=== PATIENT | male | born 1985 | race Two or more races ===

== ENCOUNTER 2022-03-05 12:35 | Inpatient (IN) | payer BC ==
[2022-03-05 14:49] VITALS: BMI 21.7
[2022-03-05] MEDS ORDERED: BISMUTH SUBSALICYLATE 524 MG/30 ML PO PRN (17:53)
[2022-03-05] MEDS ORDERED: MAG HYDROX/AL HYDROX/SIMETH 30 ML UNIT-DOSE CUP PO PRN (17:53)
[2022-03-05] MEDS ORDERED: MAGNESIUM HYDROX 2400MG/30ML ORAL SUSPENSION 30 ML CUP PO PRN (17:53)
[2022-03-05] MEDS ORDERED: LOPERAMIDE HCL 2 MG CAPSULE PO PRN (17:53)
[2022-03-05] MEDS ORDERED: BENZOCAINE/MENTHOL (CHLORASEPTIC ) LOZENGE MM PRN (17:53)
[2022-03-05] MEDS ORDERED: MAGNESIUM CITRATE 300 ML BOTTLE PO PRN (17:53)
[2022-03-05] MEDS ORDERED: ACETAMINOPHEN 325 MG TABLET (FP) PO PRN ×2 (17:53)
[2022-03-05] MEDS ORDERED: NICOTINE POLACRILEX 2 MG GUM BUC PRN (17:53)
[2022-03-05] MEDS ORDERED: IBUPROFEN 600 MG TABLET (FP) PO PRN (17:53)
[2022-03-05] MEDS ORDERED: IBUPROFEN 400 MG TABLET (FP) PO PRN (17:53)
[2022-03-05] MEDS ORDERED: NALOXONE HCL 0.4 MG/ML VIAL IM PRN (17:53)
[2022-03-05] MEDS: METHOCARBAMOL 500 MG TABLET PO PRN (19:21)
[2022-03-05] MEDS ORDERED: methaDONE HCL 10 MG TABLET (FOR DETOX USE ONLY) PO ONE (19:30)
[2022-03-05] MEDS: THIAMINE HCL 100 MG TABLET (FP) PO SCH (22:34)
[2022-03-05] MEDS: MELATONIN 5 MG TABLETS PO SCH (22:35)
[2022-03-06] MEDS: METHOCARBAMOL 500 MG TABLET PO PRN ×3 (05:13→22:21)
[2022-03-06 08:58] LABS: BLOOD UREA NITROGEN 13.8 mg/dL (7-18)
[2022-03-06 08:59] LABS: ALBUMIN 3.6 g/dl (3.4-5.0)
[2022-03-06 09:00] LABS: HEMATOCRIT 38.9 % (35.4-49); HEMOGLOBIN 13.3 GM/dL (11.7-16.9); MCH 32.1 pg (25.7-33.7); MCHC 34.3 g/dl (32.0-35.9); MEAN CELL VOLUME 93.7 fl (80-96); MEAN PLT VOLUME 7.7 fl (7.5-11.1); PLATELET COUNT 237 10^3/uL (134-434); RBC 4.15 M/mm3 (4.00-5.60); RDW 13.1 % (11.9-15.9); WHITE BLOOD COUNT 5.5 K/mm3 (4.0-10.0)
[2022-03-06 09:02] LABS: CREATININE 0.8 mg/dL (0.55-1.3)
[2022-03-06 09:03] LABS: BILIRUBIN,TOTAL 0.3 mg/dL (0.2-1); TOT PROT 6.4 g/dl (6.4-8.2)
[2022-03-06] MEDS ORDERED: methaDONE HCL 10 MG TABLET (FOR DETOX USE ONLY) ONE (09:09)
[2022-03-06] MEDS: PRENATAL VITAMINS W/ FOLIC ACID TABLET (FP) PO SCH (10:07)
[2022-03-06] MEDS: NICOTINE 7 MG/24 HOURS TOPICAL PATCH TD SCH (10:08)
[2022-03-06] MEDS: MELATONIN 5 MG TABLETS PO SCH (22:21)
[2022-03-06] MEDS: THIAMINE HCL 100 MG TABLET (FP) PO SCH (22:21)
[2022-03-07] MEDS: cloNIDine HCL 0.1 MG TABLET PO PRN ×2 (09:14→17:36)
[2022-03-07] MEDS ORDERED: methaDONE HCL 10 MG TABLET (FOR DETOX USE ONLY) PO ONE (10:00)
[2022-03-07] MEDS: NICOTINE 7 MG/24 HOURS TOPICAL PATCH TD SCH (10:22)
[2022-03-07] MEDS: PRENATAL VITAMINS W/ FOLIC ACID TABLET (FP) PO SCH (10:22)
[2022-03-07] MEDS: DICYCLOMINE HCL 10 MG CAPSULE PO PRN ×2 (10:25→20:41)
[2022-03-07] MEDS: METHOCARBAMOL 500 MG TABLET PO PRN ×2 (10:25→22:11)
[2022-03-07] MEDS: MELATONIN 5 MG TABLETS PO SCH (22:10)
[2022-03-07] MEDS: THIAMINE HCL 100 MG TABLET (FP) PO SCH (22:10)
[2022-03-08 08:59] VITALS: BP 123/72; PULSE 66; RESP 17; TEMP 98.6
[2022-03-08] MEDS ORDERED: methaDONE HCL 10 MG TABLET (FOR DETOX USE ONLY) ONE (09:18)
[2022-03-08] MEDS: PRENATAL VITAMINS W/ FOLIC ACID TABLET (FP) PO SCH (10:12)
[2022-03-08] MEDS: NICOTINE 7 MG/24 HOURS TOPICAL PATCH TD SCH (10:12)
[2022-03-08] MEDS: DICYCLOMINE HCL 10 MG CAPSULE PO PRN (10:12)
[2022-03-09] MEDS ORDERED: methaDONE HCL 10 MG TABLET (FOR DETOX USE ONLY) PO ONE (10:00)
== END 2022-03-08 13:18 | disposition left against medical advice (07) | DRG 770 ==
LOC: YASAS 12:35 → Y6N 18:02
PROVIDERS: ADMIT Allergy & Immunology; ATTEND Surgery
PROC: HZ2ZZZZ Detoxification Services for Substance Abuse Treatment (ICD-10-PCS; principal; 2022-03-05)
DX: F11.23 Opioid dependence with withdrawal (principal); F14.20 Cocaine dependence, uncomplicated; F12.20 Cannabis dependence, uncomplicated; F17.210 Nicotine dependence, cigarettes, uncomplicated
CPT/HCPCS: 36415; 80053; 85027; 86780; 93005; 93010; C9803-CS; J0735; U0003; U0005